=== PATIENT | female | born 1975 | race Two or more races ===

== ENCOUNTER → 2021-08-12 | Outpatient (CLI) | payer MEDICAID | END | disposition home or self-care (01) | LOC: RADONC 09:13 | PROVIDERS: ATTEND Internal Medicine Cardiovascular Disease | DX: R07.89 Other chest pain (principal) | CPT/HCPCS: 93306 ==

== ENCOUNTER → 2021-08-19 | Outpatient (CLI) | payer MEDICAID ==
[~2021-08-19] VITALS: Ht 157.5 cm; Wt 68.9 kg
== END | disposition home or self-care (01) ==
LOC: Rad HDHVI 08:05
PROVIDERS: ATTEND Internal Medicine Cardiovascular Disease
DX: R07.9 Chest pain, unspecified (principal)
CPT/HCPCS: 78452; 93017; 96374; A9500